=== PATIENT | male | born 1980 | race Caucasian/White ===

== ENCOUNTER 2016-07-02 17:28 | Emergency (ER) | payer OTHER ==
[~2016-07-02] VITALS: Ht 167.6 cm; Wt 86.6 kg
[~2016-07-02 17:28] MED LIST: AMIT50TA3 PO; AMPH10TA4; OLAN5TAB3 PO
[2016-07-02 18:44] LABS: KETONES,URINE Negative (NEGATIVE); LEUKOCYTE ESTERASE ,URINE Negative (NEGATIVE)
[2016-07-02 18:46] LABS: BASOPHILS % (AUTO) 0.3 % (0.0-2.0); DIFF TOTAL % 100 %; EOSINOPHILS # (AUTO) 0.1 /CMM (0.0-0.7); EOSINOPHILS % (AUTO) 0.4 % (0.0-6.0); HEMATOCRIT 44 % (39-51); HEMOGLOBIN 14.4 g/dL (13.5-17.5); LYMPHOCYTES # (AUTO) 2.3 /CMM (0.8-4.8); LYMPHOCYTES % (AUTO) 14.9 % (20.0-44.0); MEAN CORPUSCULAR HEMOGLOBIN 28 PG (26.0-33.0); MEAN CORPUSCULAR HGB CONC 33 g/dl (31.0-36.0); MEAN CORPUSCULAR VOLUME 86 fL (80-96); MONOCYTES # (AUTO) 0.7 /CMM (0.1-1.30); MONOCYTES % (AUTO) 4.4 % (2.0-12.0); NEUTROPHILS # (AUTO) 12.4 /CMM (1.8-8.9); PLATELET COUNT (AUTO) 407 /CMM (150-450); RED BLOOD CELL COUNT(AUTO) 5.17 MIL/uL (4.5-6.0); WHITE BLOOD COUNT (AUTO) 15.5 K/uL (4.3-11.0)
[2016-07-02 18:55] LABS: ANION GAP 15 (5-14); CALCIUM, SERUM 8.8 mg/dL (8.5-10.1); CARBON DIOXIDE 26 mmol/L (21-32); CHLORIDE 101 mmol/L (98-107); GFR 85 mL/min (>60); GLUCOSE 91 mg/dL (74-106); POTASSIUM 3.7 mmol/L (3.5-5.1); SODIUM SERUM 138 mmol/L (136-145); UREA NITROGEN, BLOOD 15 mg/dL (7-18)
[2016-07-02 19:00] LABS: ALANINE AMINOTRANSFERASE 19 U/L (12-78); ALBUMIN 4.3 g/dL (3.4-5.0); ASPARTATE AMINOTRANSFERASE 19 U/L (15-37); BILIRUBIN,TOTAL 0.2 mg/dL (0.2-1.0); SALICYLATE 3.3 mg/dL (2.8-20.0); TOTAL PROTEIN, SERUM 8.1 g/dL (6.4-8.2)
[2016-07-02 19:00] LABS: CANNABINOID, URINE NEGATIVE (NEGATIVE); PHENCYCLIDINE SCREEN,URINE NEGATIVE (NEGATIVE)
[2016-07-02 19:01] LABS: ACETAMINOPHEN 0 ug/ml (10-30); INDIRECT BILIRUBIN 0.2 mg/dL (0.0-1.1)
[2016-07-02 19:02] LABS: ADD UA MICROSCOPIC YES
[2016-07-02 19:06] LABS: ADD URINE CULTURE NO; MUCUS,URINE Few /LPF (None Seen); RBC,URINE 2-3/HPF /HPF (0-2); WBC,URINE NONE SEEN /HPF (0-3)
[2016-07-02 21:54] VITALS: BP 134/77
== END 2016-07-02 21:54 | disposition home or self-care (01) ==
LOC: ER 17:30
DX: F19.10 Other psychoactive substance abuse, uncomplicated (principal); R45.851 Suicidal ideations; F31.9 Bipolar disorder, unspecified; F20.9 Schizophrenia, unspecified; F41.9 Anxiety disorder, unspecified; F32.9 Major depressive disorder, single episode, unspecified; F98.8 Other specified behavioral and emotional disorders with onset usually occurring in childhood and adolescence; F10.10 Alcohol abuse, uncomplicated; F17.200 Nicotine dependence, unspecified, uncomplicated; Z59.0 Homelessness; Z88.8 Allergy status to other drugs, medicaments and biological substances
CPT/HCPCS: 36415; 80048; 80076; 80305; 81001; 85025; 99284; A4606; G0480; G0481; G0482; Z7610; 81000-TC; G6038-TC; G6039-TC; G6040-TC

== ENCOUNTER 2016-07-12 21:24 | Emergency (ER) | payer OTHER ==
[~2016-07-12] VITALS: Ht 167.6 cm; Wt 74.8 kg
[2016-07-12 22:07] LABS: BASOPHILS # (AUTO) 0.1 /CMM (0.0-0.2); BASOPHILS % (AUTO) 0.7 % (0.0-2.0); DIFF TOTAL % 100 %; EOSINOPHILS # (AUTO) 0.1 /CMM (0.0-0.7); EOSINOPHILS % (AUTO) 0.9 % (0.0-6.0); HEMATOCRIT 45 % (39-51); HEMOGLOBIN 14.4 g/dL (13.5-17.5); LYMPHOCYTES % (AUTO) 23.5 % (20.0-44.0); MEAN CORPUSCULAR HEMOGLOBIN 28 PG (26.0-33.0); MEAN CORPUSCULAR HGB CONC 32 g/dl (31.0-36.0); MEAN CORPUSCULAR VOLUME 87 fL (80-96); MONOCYTES # (AUTO) 1.3 /CMM (0.1-1.30); MONOCYTES % (AUTO) 10.6 % (2.0-12.0); NEUTROPHILS # (AUTO) 8.2 /CMM (1.8-8.9); NEUTROPHILS % (AUTO) 64.3 % (43.0-81.0); PLATELET COUNT (AUTO) 397 /CMM (150-450); RED BLOOD CELL COUNT(AUTO) 5.13 MIL/uL (4.5-6.0); WHITE BLOOD COUNT (AUTO) 12.7 K/uL (4.3-11.0)
[2016-07-12 22:20] LABS: ANION GAP 14 (5-14); CALCIUM, SERUM 9.2 mg/dL (8.5-10.1); CARBON DIOXIDE 30 mmol/L (21-32); CHLORIDE 104 mmol/L (98-107); CREATININE 0.9 mg/dL (0.6-1.3); GFR 95 mL/min (>60); GLUCOSE 104 mg/dL (74-106); POTASSIUM 4.1 mmol/L (3.5-5.1); SODIUM SERUM 144 mmol/L (136-145); UREA NITROGEN, BLOOD 19 mg/dL (7-18)
[2016-07-12 22:24] LABS: ALANINE AMINOTRANSFERASE 23 U/L (12-78); ALBUMIN 4.3 g/dL (3.4-5.0); ASPARTATE AMINOTRANSFERASE 15 U/L (15-37); BILIRUBIN,DIRECT 0.1 mg/dL (0.0-0.2); BILIRUBIN,TOTAL 0.5 mg/dL (0.2-1.0); INDIRECT BILIRUBIN 0.4 mg/dL (0.0-1.1); SALICYLATE 3.8 mg/dL (2.8-20.0); TOTAL PROTEIN, SERUM 8.5 g/dL (6.4-8.2)
[2016-07-12 22:24] LABS: PHENCYCLIDINE SCREEN,URINE NEGATIVE (NEGATIVE)
[2016-07-12 22:25] LABS: CANNABINOID, URINE POSITIVE (NEGATIVE)
[2016-07-12 22:25] LABS: ACETAMINOPHEN 0 ug/ml (10-30)
[2016-07-13 01:17] VITALS: BP 125/89
== END 2016-07-13 01:18 | disposition home or self-care (01) ==
LOC: ER 21:30
DX: F32.9 Major depressive disorder, single episode, unspecified (principal); F19.10 Other psychoactive substance abuse, uncomplicated; F31.9 Bipolar disorder, unspecified; F41.9 Anxiety disorder, unspecified; F20.9 Schizophrenia, unspecified; F98.8 Other specified behavioral and emotional disorders with onset usually occurring in childhood and adolescence; F17.200 Nicotine dependence, unspecified, uncomplicated; F10.10 Alcohol abuse, uncomplicated; Z59.0 Homelessness; Z88.8 Allergy status to other drugs, medicaments and biological substances
CPT/HCPCS: 36415; 80048-TC; 80076-TC; 80305; 85025-TC; A4606; G6038-TC; G6039-TC; G6040-TC; Z7610

== ENCOUNTER 2016-09-23 18:16 | Emergency (ER) | payer OTHER ==
[~2016-09-23] VITALS: Ht 167.6 cm; Wt 84.4 kg
--- NOTE | 2016-09-23 18:34 | NUR ---
PT AMBULATORY TO ER BED 09. PT STATES "IM SUICIDAL." W/ PLAN TO OD. PT IS AAO, SEEN IN ED MULTIPLE TIMES FOR SAME REASON. GOWNED AND PLACED ON MONITOR. STABLE VITALS. AWAITING MD STOLL.
--- NOTE | 2016-09-23 18:35 | NUR ---
ANIYAH MCNALLY AT BEDSIDE FOR EVAL.
--- NOTE | 2016-09-23 18:41 | NUR ---
TANKERMAN AT BEDSIDE FOR BLOOD DRAW.
[2016-09-23 18:47] LABS: BASOPHILS # (AUTO) 0.1 /CMM (0.0-0.2); BASOPHILS % (AUTO) 0.5 % (0.0-2.0); EOSINOPHILS # (AUTO) 0.1 /CMM (0.0-0.7); EOSINOPHILS % (AUTO) 0.6 % (0.0-6.0); HEMATOCRIT 44 % (39-51); HEMOGLOBIN 14.8 g/dL (13.5-17.5); LYMPHOCYTES # (AUTO) 2.5 /CMM (0.8-4.8); LYMPHOCYTES % (AUTO) 10.7 % (20.0-44.0); MEAN CORPUSCULAR HEMOGLOBIN 29 PG (26.0-33.0); MEAN CORPUSCULAR HGB CONC 34 g/dl (31.0-36.0); MEAN CORPUSCULAR VOLUME 85 fL (80-96); MONOCYTES # (AUTO) 1.5 /CMM (0.1-1.30); MONOCYTES % (AUTO) 6.4 % (2.0-12.0); NEUTROPHILS # (AUTO) 18.7 /CMM (1.8-8.9); NEUTROPHILS % (AUTO) 81.8 % (43.0-81.0); PLATELET COUNT (AUTO) 680 /CMM (150-450); RDW COEFFICIENT OF VARIATION 13.4 (11.5-15.0); RED BLOOD CELL COUNT(AUTO) 5.17 MIL/uL (4.5-6.0); WHITE BLOOD COUNT (AUTO) 22.9 K/uL (4.3-11.0)
[2016-09-23 18:48] LABS: APPEARANCE,URINE Clear (CLEAR); BILIRUBIN,URINE Negative (NEGATIVE); BLOOD, URINE Trace-intact Ery/uL (NEGATIVE); COLOR,URINE Yellow (YELLOW); KETONES,URINE Negative (NEGATIVE); LEUKOCYTE ESTERASE ,URINE Negative (NEGATIVE); NITRITE, URINE Negative (NEGATIVE); PROTEIN,URINE 100 mg/dl (NEGATIVE); UGLUCOSE Negative (NEGATIVE)
[2016-09-23 18:55] LABS: PHENCYCLIDINE SCREEN,URINE NEGATIVE (NEGATIVE)
[2016-09-23 19:00] LABS: ALANINE AMINOTRANSFERASE 65 U/L (12-78); ALBUMIN 3.6 g/dL (3.4-5.0); ALCOHOL, BLOOD < 3 mg/dL (0-0); ALKALINE PHOSPHATASE 109 U/L (46-116); ASPARTATE AMINOTRANSFERASE 28 U/L (15-37); BILIRUBIN,DIRECT 0.1 mg/dL (0.0-0.2); BILIRUBIN,TOTAL 0.2 mg/dL (0.2-1.0); CARBON DIOXIDE 28 mmol/L (21-32); CHLORIDE 101 mmol/L (98-107); CREATININE 0.9 mg/dL (0.6-1.3); GFR 95 mL/min (>60); GLUCOSE 116 mg/dL (74-106); POTASSIUM 3.7 mmol/L (3.5-5.1); SALICYLATE 2.9 mg/dL (2.8-20.0); SODIUM SERUM 137 mmol/L (136-145); TOTAL PROTEIN, SERUM 8.4 g/dL (6.4-8.2); UREA NITROGEN, BLOOD 13 mg/dL (7-18)
--- NOTE | 2016-09-23 19:08 | NUR ---
RADIOLOGY AT BEDSIDE FOR CHEST XRAY.
[2016-09-23 19:09] LABS: CANNABINOID, URINE POSITIVE (NEGATIVE)
[2016-09-23 19:09] LABS: ACETAMINOPHEN < 2 ug/ml (10-30)
[2016-09-23 19:22] LABS: ADD URINE CULTURE NO; BACTERIA,URINE None seen /HPF (None Seen); SQUAMOUS EPITHELIAL CELL,UR Few /HPF (None Seen); WBC,URINE 0-2 /HPF (0-3)
--- NOTE | 2016-09-23 20:57 | NUR ---
REPORT GIVEN TO IVAN AT [facility]. AWAITNG TRANSFER.
[2016-09-23] MEDS ORDERED: GABA600T2 PO (21:04)
[2016-09-23 21:12] VITALS: BP 132/76
== END 2016-09-23 21:14 ==
LOC: ER 18:18
DX: R45.851 Suicidal ideations (principal); F32.9 Major depressive disorder, single episode, unspecified; F41.9 Anxiety disorder, unspecified; F31.9 Bipolar disorder, unspecified; F98.8 Other specified behavioral and emotional disorders with onset usually occurring in childhood and adolescence; F17.200 Nicotine dependence, unspecified, uncomplicated; Z88.8 Allergy status to other drugs, medicaments and biological substances
CPT/HCPCS: 36415; 71010; 80048; 80076; 80305; 80329; 81001; 82553; 85025; 99285; A4606; G0480 ×2; Z7610; 81000-TC; G6039-TC

== ENCOUNTER → 2017-08-03 | Emergency (ER) | payer OTHER ==
[~2017-08-03] MED LIST changes: +GABA600T2 PO
--- NOTE | 2017-08-03 17:32 | NUR ---
CALLED TO TRIAGE, NO ANSWER,PATIENT LEFT PER ADMITTING
== END | disposition left against medical advice (07) ==
LOC: ER 17:30
DX: Z53.21 Procedure and treatment not carried out due to patient leaving prior to being seen by health care provider (principal)